=== PATIENT | female | born 1980 | race Caucasian/White ===

== ENCOUNTER 2016-12-02 11:04 | Inpatient (IN) | payer MEDICARE ==
--- NOTE | ~2016-12-02 | CO ---
Unit #: [id number] #: [id number] Patient: SUNG GARCIA [id number] [address] [place], [place] [address] [id number] I MR#: [id number] NAME: SUNG GARCIA ROOM: 238 Age: 36 Sex: F Admission Date: 12/02/2016 : 1980 Attending Physician: Phil Whitney M.D. Primary Care Physician: Lesley Moura A.P.R.N. Consultation Date: 12/02/2016 CONSULTATION REPORT REASON FOR CONSULTATION Diffuse abdominal pain. HISTORY OF PRESENT ILLNESS Ms. Garcia is a 36-year-old white female, who has longstanding history of bipolar depression. 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 According to the mother who was present at bedside, the patient is normally very lively and active; however from April onwards, she has been having significant pain in the abdomen. In fact, the pain is present all over the abdomen from mid epigastric area to both flanks to left and right upper abdomen, right lower quadrant of the abdomen. The patient initially saw Dr. Jono Harris in [facility] and had an upper endoscopy and a colonoscopy, and was told that she has severe reflux. The patient however had no symptoms of gastroesophageal reflux. She apparently took the medication without much help. She is quite frustrated as having not been able to see Dr. Harris since then and office not returning her calls. Her history is quite bizarre in the sense that she says for the past 10 days, she has not been able to eat or drink anything as it causes pain instantly in the entire abdomen. There is some history of nausea and vomiting. She has lost about 10 pounds in the interim. PAST MEDICAL HISTORY Significant for bipolar disorder and abdominal pain as mentioned above. No previous surgery except for a section. SOCIAL HISTORY The patient does not smoke or drink alcohol. Lives at home with and daughter. ALLERGIES No known drug allergies. MEDICATIONS Include Carafate, Prilosec, Topamax, Seroquel, lorazepam, dicyclomine, Reglan, Zofran, and [place]. REVIEW OF SYSTEMS Detailed review of organ system reveals weight loss about 9 pounds. No history of fever, chills, or rigors. No history of headache, seizures, chest pain, or syncope. No history of cough, expectoration, or hemoptysis. No history of dysuria, hematuria, or pyuria. No history of focal seizures or extremity weakness. Unit #: [id number] #: [id number] Patient: SUNG GARCIA PHYSICAL EXAMINATION GENERAL: She appears to have a flat affect. She is awake and alert, and oriented, but is barely able to move around in the bed. VITAL SIGNS: Indicate temperature is 98.2, pulse 87 per minute and regular, respiratory rate is 16, blood pressure is 131/79. She weighs 212 pounds and in fact, the weight is more than any other time in the past. DIAGNOSTIC STUDIES IMAGING STUDIES: Shows a normal CT scan of the abdomen and pelvis. LABORATORY RESULTS: Normal CBC and CMP. Urinary tract infection in urinalysis and TCA positive on tox screen. CLINICAL IMPRESSION The patient is a fairly bizarre presentation and I cannot think of any single entity that would explain the symptoms. I would suggest obtaining the records of her upper endoscopy and a colonoscopy Dr. Harris and also repeat an upper endoscopy tomorrow morning. In addition, I have taken time to explain to her mother that a small bowel follow-through will help. We will try to do this after the endoscopy tomorrow. The patient is already due for a pelvic ultrasound ordered by Dr. Whitney. Thank you for asking me to see this young woman. I appreciate the consult. Dictated by... Bessie Carpio/tanisha TD: 12/03/2016 01:36 JOB #: [id number] CONSULTATION REPORT Page 1 of 1 X Wil Argueta MD X CONSULTATION REPORT
--- NOTE | ~2016-12-02 | CR236 ---
[facility] A Service of [facility] RADIOLOGY TEXT RESULTS PATIENT: SUNG MOTT LOCATION: C2A 238 : 80 UNIT #: [id number] AGE: [address]: Phil Whitney MD SEX: F ORDER DR: [id number] [facility] [address] [facility]. [place], [place] [address] [id number] I MR#: [id number] Acc #: [id number] NAME: SUNG MOTT : 1980 SEX: F STUDY DATE/TIME: 12/03/2016 15:29 UNIT: A ROOM: 238 STUDY DESCRIPTION: CR Small Bowel Sbft W Films Attending Physician: Phil Whitney M.D. Ordering Physician: Wil Argueta M.D. Primary Care Physician: Lesley Moura A.P.R.N. MEDICAL IMAGING REPORT This report is preliminary unless electronic signature is present EXAM Small bowel follow-through 12/03 INDICATIONS Abdominal pain and spasms for 2 weeks. FINDINGS Small bowel follow-through was obtained. Fluoro time was well under a minute. 8 total images were obtained. COMPARISON STUDIES CT abdomen and pelvis from 12/01/2016. 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 These measure up to about 4.1 cm in greatest diameter. There is colonic gas and stool noted. Patient ingested oral barium. Transit time is within the range of normal with contrast well into the colon within 2.5 hours. No bowel dilatation is seen. There is no evidence of bowel wall thickening. The terminal ileum is normal. IMPRESSION Normal small bowel follow-through. Dictated by... Uche Syed Jr., M.D. THIS IS AN ELECTRONICALLY VERIFIED REPORT Uche Syed Jr., M.D. at 12/04/2016 5:53 AM RLK/pcl [facility] A Service [facility] RADIOLOGY TEXT RESULTS PATIENT: SUNG MOTT LOCATION: C2A : 80 UNIT #: [id number] AGE: [address]: Phil Whitney MD SEX: F ORDER DR: TD: 12/03/2016 18:36 JOB #: [id number] MEDICAL IMAGING REPORT Page 1 of 1 COPY
--- NOTE | ~2016-12-02 | US96 ---
[facility] A Service of [facility] RADIOLOGY TEXT RESULTS PATIENT: SUNG MOTT LOCATION: A 238-01 : [birth year] UNIT #: [id number] AGE: [address]: Phil Wihtney MD SEX: F ORDER DR: [id number] [facility] [address] [facility]. [place], [place] [address] [id number] MR#: [id number] Acc #: [id number] NAME: SUNG MOTT : 1980 SEX: F STUDY DATE/TIME: 12/02/2016 18:30 UNIT: [facility] ROOM: [facility] STUDY DESCRIPTION: US Pelvic Duplex Complete Attending Physician: Phil Whitney M.D. Ordering Physician: Phil Whitney M.D. Primary Care Physician: Lesley Moura A.P.R.N. MEDICAL IMAGING REPORT This report is preliminary unless electronic signature is present EXAM Pelvic ultrasound. DATE OF EXAM 12/02/2016 HISTORY Abdominal pain for the past 4 months with pelvic pain for the past day. Additional history of HPV. TECHNIQUE Ultrasound evaluation of the pelvis was performed transabdominally and transvaginally with pickett-scale, color-flow and Doppler spectral waveform analysis. FINDINGS Transabdominal scanning shows a smooth contour to the bladder. No dominant pelvic or lower abdominal masses or cysts are seen. Transvaginal scanning shows a normal sized uterus measuring 4.3 x 4.7 x 5.9 cm with a normal endometrium of 4 mm. The right ovary is 1.4 x 2 x 1 cm and the left ovary could not be visualized. No free fluid is seen in the pelvic cul-de-sac. The Doppler and spectral waveform pattern for the right ovary is normal. IMPRESSION Negative pelvic sonogram. The left ovary not visualized. Normal right ovary. STAT * RESULT [facility] A Service of [facility] RADIOLOGY TEXT RESULTS PATIENT: SUNG MOTT LOCATION: [facility] 238-01 : [birth year] UNIT #: [id number] AGE: [address]: Phil Whitney MD SEX: F ORDER DR: Dictated by... Uche Spivey M.D. THIS IS AN ELECTRONICALLY VERIFIED REPORT Uche Spivey M.D. at 12/03/2016 10:06 AM [facility] TD: 12/02/2016 18:50 JOB #: [id number] MEDICAL IMAGING REPORT Page 1 of 1 COPY
--- NOTE | ~2016-12-02 | DS ---
Unit #: [id number] #: [id number] Patient: SUNG MOTT [id number] [facility] [address] [facility]. [place], [place] [address] [id number] I MR#: [id number] NAME: SUNG MOTT ROOM: 238 Age: 36 Sex: F Admission Date: 12/02/2016 : 1980 Discharge Date: 12/06/2016 Attending Physician: Phil Whitney M.D. Primary Care Physician: Lesley Moura A.P.R.N. DISCHARGE SUMMARY FINAL DISCHARGE DIAGNOSES 1. Abdominal pain of unclear etiology. 2. Bipolar disorder. CONSULTANTS Dr. Wil Argueta. PROCEDURES None. REASON FOR HOSPITALIZATION The patient is a 36-year-old white female with a history of chronic abdominal pain, prior endoscopy by Dr. Harris upper and lower with multiple biopsies that were was negative for any pathology, worsening abdominal pain over the past few months. Over the past few weeks it has become markedly worse. She has had some light colored stools, nausea, vomiting, intermittent abdominal pain, seen in [facility] emergency room 11/30/16 then [facility] emergency room 12/01/16 with essentially completely negative workups including a CT scan. At [facility] she had a urinalysis, CBC, CMP, serum qualitative hCG. Again here at [facility] we did a CBC, chem-7, amylase and lipase, LFTs, urine test. CT scan of the abdomen and pelvis which was normal. She then showed up in my office with her mother the afternoon of admission writhing in pain, crying, lying on the table inconsolable, stating that she had left-sided abdominal pain that radiated into her back, into her chest. Her mother was beside herself as well as the patient. She was very difficult to examine because of her screaming out in pain and writhing on the bench. Her vital signs were within normal limits. O2 sat was normal. Blood pressure was normal. Her abdomen was soft, nondistended, nontender with positive bowel sounds and it was felt that she needed to be admitted, despite her prior negative workup, for control of her pain and further evaluation. HOSPITAL COURSE The patient was admitted to a med/surg bed. She was made n.p.o., started on IV fluids. Repeat labs were sent. Her CBC was again normal. CMP, amylase and lipase were normal except for a chloride of 112 and a CO2 of 20 but the patient is on Topamax at home. Urine culture that was sent in the emergency room was negative. Repeat beta hCG was normal. Pelvic ultrasound was within normal limits although the left ovary was not visualized. EGD was within normal limits, small bowel followthrough within normal limits. Stool for Shigella, Campylobacter and C. diff were all within normal limits. Repeat CBC this morning, the day of discharge, Unit #: [id number] #: [id number] Patient: MOTT,SUNG within normal limits except for a white count of 3.5. Repeat BMP was within normal limits except for a chloride or 112 and a CO2 of 21. Patient was tolerating a regular diet. Her pain was better. She had developed some diarrhea, treated with Lomotil and resolved. There was no first beater on state to do a pelvic exam and do an intrapelvic ultrasound. We got in touch with her first beater's office, Dr. Lucie Hall, and had an appointment set up even before she was discharged, at 10:00 a.m. on Tuesday with her nurse practitioner, Miss Camacho. DISPOSITION She was discharged home. DISCHARGE MEDICATIONS 1. She is to resume her home medicines plus a prescription for Levsin sublingual q.4 h. p.r.n. for abdominal cramps. Her other medications at home: 2. Prilosec dose unknown daily. 3. Topamax 200 mg daily. 4. Seroquel 600 mg q.h.s. 5. Ativan 1 mg b.i.d. p.r.n. 6. Reglan was discontinued. 7. She also has Zofran 4 mg ODT p.r.n. 8. [place] 7.5/325 q.6 h. p.r.n. 9. Her Bentyl was discontinued. 10. Reglan was discontinued. FOLLOWUP She will follow up in our office in one week. Dictated by... Phil Whitney M.D. JOEY/aster TD: 12/07/2016 17:36 JOB #: [id number] DISCHARGE SUMMARY Page 1 of 1 X Phil Whitney MD DISCHARGE SUMMARY
--- NOTE | ~2016-12-02 | OR ---
Unit #: [id number] #: [id number] Patient: SUNG MOTT [id number] [id number] [facility]. [place], [place] [address] [id number] I MR#: [id number] NAME: SUNG MOTT ROOM: 238 Date of Procedure: 12/03/2016 Admission Date: 12/02/2016 Surgeon: Wil Argueta M.D. : 1980 Attending Physician: Phil Whitney M.D. Primary Care Physician: Lesley Moura A.P.R.N. OPERATIVE REPORT PRIMARY CARE PHYSICIAN Lesley Moura A.P.R.N. PREOPERATIVE DIAGNOSES The patient has diffuse abdominal pain, dyspepsia and gastroesophageal reflux. In addition, she also has deep-seated pelvic pain and now intermenstrual bleeding. She is also overwhelmingly anxious and nervous and crying all the time. SEDATION USED MAC. POSTOPERATIVE DIAGNOSES Completely normal examination up to third part of duodenum. No mucosal abnormalities whatsoever were present. RECOMMENDATIONS I seriously doubt the patient has any gastrointestinal issues. We will try and obtain her records from Dr. Harris about his endoscopic findings and colonoscopy findings and impression. 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 DESCRIPTION OF PROCEDURE Following detailed explanation of potential risks and complications of an upper endoscopy, namely perforation, bleeding, complication related to sedation, the patient was brought to GI lab and laid in the left lateral decubitus position. Lubricated tip of the Olympus video upper endoscope was passed through the bite block into the proximal esophagus under direct vision. The entire esophageal mucosa was examined and appeared normal. Z-line was nicely demarcated, there being no esophagitis or hiatus hernia. The scope was then advanced into the gastric cavity and the latter was insufflated. Mucosa of the fundus, body, and antrum mucosa of the fundus, body, and antrum was examined and appeared unremarkable. Pylorus was intubated with visualization of the normal duodenal bulb and second and third part of the duodenum. Upon withdrawal and retroflexion, incisura, cardia, and greater curve were examined and no additional findings were noted. The scope was then withdrawn in the distal esophagus. Entire esophageal mucosa was examined all the way up to pharynx. No additional findings noted. The patient tolerated the procedure without any postprocedure complications. Unit #: [id number] #: [id number] Patient: SUNG MOTT Dictated by.Bessie Almaraz/tanisha TD: 12/04/2016 00:13 JOB #: [id number] OPERATIVE REPORT Page 1 of 1 X Wil Argueta MD X PROCEDURE OPERATIVE NOTE
--- NOTE | ~2016-12-02 | HP ---
Unit #: [id number] #: [id number] Patient: SUNG MOTT [id number] [address] [place], [place] [address] [id number] I MR#: [id number] NAME: SUNG MOTT ROOM: 238 Age: 36 Sex: F Admission Date: 12/02/2016 : 1980 Attending Physician: Phil Whitney M.D. Primary Care Physician: Lesley Moura A.P.R.N. HISTORY AND PHYSICAL HISTORY OF PRESENT ILLNESS The patient is a 36-year-old white female with a history of chronic abdominal pain, questionable history of Olson esophagus, prior endoscopy by Dr. Harris, recently worsening abdominal pain over the past few months. Over the past few weeks it has become markedly worse. She has had some black colored stools, nausea and vomiting, intermittent abdominal pain. She went to [facility] emergency room on 11/30/2016 and then [facility] emergency room on 12/01/2016, with essentially completely negative workups, although in the emergency room last night she was told she had cystitis. In any case, she previously at [facility] had a urinalysis, CBC, CMP, serum qualitative HCG that was negative. Urinalysis at that time was completely normal, as well as all of her chemistries. I do not have the results from [facility], but apparently they again did a CBC, chem.7, amylase, lipase, liver functions, test although it is not specified whether it was urine or serum. CT scan of the abdomen was reportedly normal. She then showed up in my office with her mother this afternoon, writhing in pain, crying, laying on the table inconsolable, stating that she had left-sided abdominal pain that radiated to her chest, radiated into her back. Her mother was beside herself as well as the female patient. She was very difficult to examine. Her vitals on admission showed a temperature that was normal. O2 saturation was normal. Blood pressure was normal. In any case, it was felt that despite her normal exam, normal CT and labs she needed to be admitted at least for pain control and further evaluation. This is being performed. PAST MEDICAL HISTORY 1. History of bipolar disorder. 2. Chronic abdominal pain. PAST SURGICAL HISTORY No previous surgeries except in 2010. SOCIAL HISTORY Unobtainable because she is constantly screaming and crying in pain. ALLERGIES No known drug allergies. CURRENT MEDICATIONS 1. Carafate 1 g morning and evening. 2. Prilosec 20 mg 3 daily. 3. Topamax 100 mg 2 daily. 4. Seroquel 300 mg 2 at nighttime. 5. Lorazepam 1 mg b.i.d. Unit #: [id number] #: [id number] Patient: SUNG MOTT 6. Dicyclomine 20 mg q.i.d. 7. Reglan 10 mg at nighttime. 8. Zofran 4 mg p.r.n. 9. [place] 7.5/325 mg p.o. q.6 h. p.r.n. PHYSICAL EXAMINATION VITALS: Again, weight 210 pounds, height 65 inches, BMI 35, temperature 98.7, O2 saturations 99% on room air, blood pressure 118/70. HEENT: Limited, but within normal limits. Membranes were moist. Sclerae anicteric. She was not pale. NECK: Supple without jugular venous distension, bruits, adenopathy or thyromegaly. CHEST: Clear to auscultation. HEART: Regular rate and rhythm without any murmurs, rubs or gallops. ABDOMEN: Soft, nondistended, positive bowel sounds. No hepatosplenomegaly. Surprisingly nontender. EXTREMITIES: No clubbing, cyanosis or edema. DIAGNOSTIC STUDIES LABORATORY: All mentioned above. Some are to be repeated upon admission. ASSESSMENT 1. Intractable abdominal pain. 2. Bipolar disorder. 3. Questionable history of Olson esophagus from the biopsies I saw from Dr. Harris before. There was no evidence of Olson, although maybe he told her that during the exam. PLAN In any case, she is being admitted. N.p.o. GI will be consulted. She will be given morphine for pain control, IV Zofran, IV proton pump inhibitors, IV fluids. Repeat CBC, CMP, amylase and lipase. Review her CT scan of the abdomen. I am not sure that they got her pelvis. Obviously at this age you would want to at least check into her ovaries to make sure it is not an ovarian cyst or rupture otherwise. Further evaluation pending results of the above. Dictated by Bessie Yanes/jordana TD: 12/02/2016 13:54 JOB #: [id number] HISTORY AND PHYSICAL Page 1 of 1 X Phil Whitney MD HISTORY AND PHYSICAL
[2016-12-02] MEDS ORDERED: HYDROCODONE PO (12:34)
[2016-12-02] MEDS ORDERED: REGLAN10 MG (12:35)
[2016-12-02] MEDS ORDERED: DICYCLOMINE HCL20 MG PO (12:36)
[2016-12-02] MEDS ORDERED: ZOFRAN ODT4 MG PO (12:36)
[2016-12-02] MEDS ORDERED: NITROFURANTOIN100 M3 PO (12:37)
[2016-12-02] MEDS ORDERED: OMEPRAZOLE20 M1 PO (12:37)
[2016-12-02] MEDS ORDERED: BIRTH CONTROL PILL (12:38)
[2016-12-02] MEDS ORDERED: QUETIAPINE FUM300 MG PO (12:39)
[2016-12-02] MEDS ORDERED: LORAZEPAM1 MG PO (12:39)
[2016-12-02] MEDS ORDERED: TOPIRAMATE100 MG PO (12:40)
[2016-12-02 13:42] LABS: HEMATOCRIT 38.2 % (35.0-45.0); MEAN CORPUSCULAR HEMOGLOBIN 30.3 PG (28-34); MEAN CORPUSCULAR HGB CONC 34.1 g/dL (30-36); MEAN PLATELET VOLUME 9.2 FL (6.5-11.5); RED BLOOD COUNT 4.29 X10e (3.90-5.30); WHITE BLOOD COUNT 5.6 X10e3 (4.0-10.5)
[2016-12-02 14:10] LABS: ALBUMIN SERUM 3.5 g/dL (3.5-5.0); BILIRUBIN,TOTAL 0.3 mg/dL (0.2-2.0); BUN/CREATININE RATIO 8.75; CALCIUM SERUM 8.8 mg/dL (8.4-10.2); CREATININE SERUM 0.8 mg/dL (0.6-1.4); GLOM FILT RATE Estimated 94.9 mL/min (>60); POTASSIUM 3.5 mmol/L (3.5-5.1)
[2016-12-06 05:59] LABS: HEMATOCRIT 37.2 % (35.0-45.0); HEMOGLOBIN 12.2 gm/dL (12.0-16.0); MEAN CELL VOLUME 89.2 FL (83-96); MEAN CORPUSCULAR HEMOGLOBIN 29.4 PG (28-34); MEAN CORPUSCULAR HGB CONC 32.9 g/dL (30-36); MEAN PLATELET VOLUME 9.5 FL (6.5-11.5); RED BLOOD COUNT 4.16 X10e (3.90-5.30); RED CELL DISTRIBUTION WIDTH 12.8 % (11.0-15.5); WHITE BLOOD COUNT 3.5 X10e3 (4.0-10.5)
[2016-12-06 06:52] LABS: CARBON DIOXIDE 21 mmol/L (22-31); CHLORIDE 112 mmol/L (100-111); CREATININE SERUM 0.6 mg/dL (0.6-1.4); GLOM FILT RATE Estimated 117.3 mL/min (>60); GLUCOSE FASTING 127 mg/dL (70-110); POTASSIUM 3.6 mmol/L (3.5-5.1); SODIUM 141 mmol/L (135-145)
[2016-12-06 06:53] LABS: BLOOD UREA NITROGEN <5 mg/dL (9-23); BUN/CREATININE RATIO 8.33
[2016-12-06] MEDS ORDERED: LEVSIN-SL0.125 MG SL (12:35)
== END 2016-12-06 13:47 | disposition home or self-care (01) | DRG 392 ==
LOC: C2A 11:04
PROVIDERS: Internal Medicine; Internal Medicine Gastroenterology
PROC: 0DJ08ZZ Inspection of Upper Intestinal Tract, Via Natural or Artificial Opening Endoscopic (ICD-10-PCS; principal; 2016-12-03 09:23)
PROC: 02HV33Z Insertion of Infusion Device into Superior Vena Cava, Percutaneous Approach (ICD-10-PCS; 2016-12-05)
DX: R10.9 Unspecified abdominal pain (principal); F31.9 Bipolar disorder, unspecified; K21.9 Gastro-esophageal reflux disease without esophagitis; R19.7 Diarrhea, unspecified
CPT/HCPCS: 36415; 74177; 74250; 80048; 80053; 80076; 81003; 82150; 82947; 83690; 84703; 85025; 85027; 87045; 87086; 87427; 87493; 87899; 93975; 96374; 96375; 99284; C9113; J0595; J1650; J1885; J2060; J2250; J2270; J2405; Q9967